=== PATIENT | male | born 1985 | race Caucasian/White ===

== ENCOUNTER 2023-06-17 17:01 | Emergency (ER) | payer BC, OTHER ==
[2023-06-17 18:23] VITALS: RESP 18; TEMP 97
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
[2023-06-17 20:39] VITALS: BP 120/78; PULSE 88
[2023-06-17 20:44] VITALS: O2SAT 98
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
== END 2023-06-17 20:48 | disposition home or self-care (01) ==
LOC: ED 17:01
DX: S46.911A Strain of unspecified muscle, fascia and tendon at shoulder and upper arm level, right arm, initial encounter (principal); S56.911A Strain of unspecified muscles, fascia and tendons at forearm level, right arm, initial encounter; V49.50XA Passenger injured in collision with unspecified motor vehicles in traffic accident, initial encounter; M25.511 Pain in right shoulder; M79.631 Pain in right forearm; Z79.899 Other long term (current) drug therapy; Z28.310 Unvaccinated for COVID-19; Z72.0 Tobacco use
CPT/HCPCS: 72125; 73030; 73090; 99285